=== PATIENT | male | born 1955 | race Caucasian/White ===

== ENCOUNTER 2021-08-17 10:43 | Day surgery (SDC) | payer OTHER ==
[2021-08-17 11:49] VITALS: BMI 23.6
[2021-08-17 14:18] VITALS: TEMP 97.9
[2021-08-17 14:21] VITALS: BP 121/76; PULSE 76
== END 2021-08-17 14:15 | disposition home or self-care (01) ==
LOC: FASU 10:43
PROVIDERS: ATTEND Ophthalmology
PROC: 08RJ3JZ Replacement of Right Lens with Synthetic Substitute, Percutaneous Approach (ICD-10-PCS; principal; 2021-08-17)
DX: H26.9 Unspecified cataract (principal)

== ENCOUNTER 2021-11-02 11:26 | Day surgery (SDC) | payer OTHER ==
[2021-11-01 14:37] VITALS: BMI 23.6
[2021-11-02] MEDS ORDERED: CYCLOPENTOLATE HCL 1% OPHTH SOLN 2 ML BOTTLE ONE (11:46)
[2021-11-02] MEDS ORDERED: TROPICAMIDE 1% OPHTH SOLN 15 ML BOTTLE ONE (11:46)
[2021-11-02] MEDS ORDERED: PHENYLEPHRINE 2.5% OPHTH SOLN 15 ML BOTTLE ONE (11:46)
[2021-11-02] MEDS ORDERED: OFLOXACIN 0.3% OPHTHALMIC SOLUTION 5 ML BOTTLE ONE (11:46)
[2021-11-02] MEDS ORDERED: KETOROLAC TROMETHAMINE 0.5% EYE DROP 1 DROP DROPS ONE (11:46)
[2021-11-02] MEDS: OFLOXACIN 0.3% OPHTHALMIC SOLUTION 5 ML BOTTLE OS SCH ×3 (12:05→12:15)
[2021-11-02] MEDS: CYCLOPENTOLATE HCL 1% OPHTH SOLN 2 ML BOTTLE OS SCH ×3 (12:05→12:15)
[2021-11-02] MEDS: KETOROLAC TROMETHAMINE 0.5% EYE DROP 1 DROP DROPS OS SCH ×3 (12:05→12:15)
[2021-11-02] MEDS: TROPICAMIDE 1% OPHTH SOLN 15 ML BOTTLE OS SCH ×3 (12:05→12:15)
[2021-11-02] MEDS: PHENYLEPHRINE 2.5% OPHTH SOLN 15 ML BOTTLE OS SCH ×3 (12:05→12:15)
[2021-11-02] MEDS ORDERED: ACETAMINOPHEN 325 MG TABLET (FP) PO PRN (13:05)
[2021-11-02] MEDS ORDERED: BACITRACIN/POLYMYXIN OPH OINT 3.5 GM TUBE ONE (13:08)
[2021-11-02] MEDS ORDERED: POVIDONE-IODINE 5% OPHTHALMIC PREP 30 ML SOLUTION ONE (13:09)
[2021-11-02] MEDS ORDERED: BETAXOLOL HCL 0.25% OPHTHALMIC 10 ML DROPSBTL ONE (13:09)
[2021-11-02] MEDS ORDERED: EPI-SHUGARCAINE (EPINEPHRINE 0.025% & LIDOCAINE-PF 0.75%) 4ML ONE (13:09)
[2021-11-02] MEDS ORDERED: TETRACAINE 0.5% OPHTH SOLN 2 ML BOTTLE ONE (13:09)
[2021-11-02] MEDS ORDERED: NEO/POLYMYX B SULF/DEXAMETH OPHTHALMIC 5ML BOTTLE ONE (13:09)
[2021-11-02] MEDS ORDERED: MIDAZOLAM HCL 2 MG/2 ML SINGLE DOSE VIAL ONE (13:16)
[2021-11-02] MEDS ORDERED: ACETAMINOPHEN 325 MG TABLET (FP) ONE (14:11)
[2021-11-02 14:24] VITALS: TEMP 97.9
[2021-11-02 14:46] VITALS: BP 118/68; PULSE 62
== END 2021-11-02 14:50 | disposition home or self-care (01) ==
LOC: FASU 11:26
PROVIDERS: ATTEND Ophthalmology
PROC: 08RK3JZ Replacement of Left Lens with Synthetic Substitute, Percutaneous Approach (ICD-10-PCS; principal; 2021-11-02 13:35)
DX: H26.9 Unspecified cataract (principal)